=== PATIENT | male | born 1950 | race Caucasian/White ===

== ENCOUNTER → 2017-10-25 09:03 | Outpatient (CLI) | payer MEDICARE, OTHER, SELFPAY ==
[2017-10-25 10:31] LABS: AST(SGOT) 15 U/L (15-37); Alanine Aminotransfer ALT/SGPT 17 U/L (16-61); Albumin, Serum 4.2 g/dL (3.2-5.0); Alkaline Phosphatase 43 U/L (45-117); Cholesterol 212 mg/dL (200); Globulin 3.5 g/dL (2.2-4.2); High Density Lipoprotein 48 mg/dL; Protein, Total 7.7 g/dL (6.4-8.2); Triglycerides 119 mg/dL; Very Low Density Lipoprotein 24 mg/dL (5-40)
== END ==
PROVIDERS: Family Provider Family Medicine; PCP Family Medicine; Visit Provider Internal Medicine Cardiovascular Disease
DX: E78.5 Hyperlipidemia, unspecified (principal); Z79.899 Other long term (current) drug therapy
CPT/HCPCS: 36415; 80061; 80076

== ENCOUNTER → 2017-12-05 13:24 | Outpatient (CLI) | payer MEDICARE, OTHER, SELFPAY ==
[2017-12-05 15:37] LABS: Absolute Lymphocyte Count 1.38 X10^3/ul (0.83-4.51); Absolute Neutrophil Count 2.9 X10^3/uL (2.0-7.7); Basophil# 0.01 X10^3/uL; Basophil% 0.2 % (0-1); Eosinophil# 0.11 X10^3/uL; Eosinophils% 2.1 % (0-5); Hematocrit 41.4 % (40-54); Lymphocyte # 1.38 X10^3/ul (4.0); Lymphocyte % 26.9 % (19-41); Mean Corp Hgb Conc 33.8 g/gl (32-36); Mean Corpuscular Hgb 31.5 pg (27.0-32.0); Mean Platelet Vol. 10.4 fl (6.2-12.0); Monocyte# 0.69 X10^3/uL; Monocyte% 13.5 % (0-10); Neutrophil # 2.93 X10^3/uL (2.7-7.7); Neutrophil % 57.1 % (47-70); Platelet Count 166 K/mm3 (150-450); RBC Distribution Width SD 47.5 fl (35.1-43.9); Red Blood Count 4.45 M/mm3 (4.6-6.2); White Blood Count 5.1 K/mm3 (4.4-11.0)
[2017-12-05 15:48] LABS: Anion Gap 6 (5-15); BUN 12 mg/dL (7-18); BUN/Creat Ratio 12.8 RATIO (10-20); Calcium,Total 9.3 mg/dL (8.5-10.1); Chloride 105 mmol/L (98-107); Creatinine, Serum 0.94 mg/dL (0.70-1.30); EST Glomerular Filtration Rate 85 mL/min (>60); Est Glom Filt Rate - Afr Amer 103 mL/min (>60); Glucose 162 mg/dL (74-106); Potassium 4.2 mmol/L (3.5-5.1); Sodium Level 134 mmol/L (136-145); T4 Free Direct 1.36 ng/dL (0.76-1.46); Thyroid Stim Hormone (TSH) 1.09 uIU/mL (0.358-3.74)
[2017-12-05 15:52] LABS: POSITIVE COUNT NO; POSITIVE DIFFERENTIAL NO; POSITIVE MORPHOLOGY NO
== END ==
PROVIDERS: Family Provider Family Medicine; PCP Family Medicine; Visit Provider Family Medicine
DX: I10 Essential (primary) hypertension (principal); E78.2 Mixed hyperlipidemia; E11.9 Type 2 diabetes mellitus without complications
CPT/HCPCS: 36415; 80048; 84439; 84443; 85025

== ENCOUNTER → 2018-04-27 06:06 | Outpatient (CLI) | payer MEDICARE, OTHER, SELFPAY ==
[2018-04-27 08:00] LABS: AST(SGOT) 15 U/L (15-37); Alanine Aminotransfer ALT/SGPT 21 U/L (16-61); Albumin, Serum 3.9 g/dL (3.2-5.0); Alkaline Phosphatase 53 U/L (45-117); Bilirubin, Direct 0.27 mg/dL (0.00-0.30); Cholesterol 200 mg/dL (200); Globulin 3.3 g/dL (2.2-4.2); High Density Lipoprotein 49 mg/dL; Protein, Total 7.2 g/dL (6.4-8.2); Triglycerides 98 mg/dL; Very Low Density Lipoprotein 20 mg/dL (5-40)
== END ==
PROVIDERS: Family Provider Family Medicine; PCP Family Medicine; Referring Provider Internal Medicine Cardiovascular Disease; Visit Provider Internal Medicine Cardiovascular Disease
DX: E78.5 Hyperlipidemia, unspecified (principal); Z79.899 Other long term (current) drug therapy
CPT/HCPCS: 36415; 80061; 80076

== ENCOUNTER → 2018-11-15 13:59 | Outpatient (CLI) | payer MEDICARE, OTHER, SELFPAY ==
[2018-11-15 16:50] LABS: AST(SGOT) 14 U/L (15-37); Alanine Aminotransfer ALT/SGPT 19 U/L (16-61); Albumin, Serum 3.9 g/dL (3.2-5.0); Alkaline Phosphatase 72 U/L (45-117); Bilirubin, Direct 0.13 mg/dL (0.00-0.30); Cholesterol 240 mg/dL (200); Globulin 3.3 g/dL (2.2-4.2); High Density Lipoprotein 45 mg/dL; Protein, Total 7.2 g/dL (6.4-8.2); Triglycerides 187 mg/dL; Very Low Density Lipoprotein 37 mg/dL (5-40)
== END ==
PROVIDERS: Family Provider Family Medicine; PCP Family Medicine; Referring Provider Internal Medicine Cardiovascular Disease; Visit Provider Internal Medicine Cardiovascular Disease
DX: E78.5 Hyperlipidemia, unspecified (principal)
CPT/HCPCS: 36415; 80061; 80076

== ENCOUNTER → 2019-02-13 14:57 | Outpatient (CLI) | payer MEDICARE, OTHER, SELFPAY ==
[2018-11-20 07:51] VITALS: BMI 27.8
== END ==
PROVIDERS: Family Provider Family Medicine; PCP Family Medicine; Referring Provider Physician Assistant Medical; Visit Provider Physician Assistant Medical
DX: Z00.00 Encounter for general adult medical examination without abnormal findings (principal)
CPT/HCPCS: 36415; 80061; 80076

== ENCOUNTER → 2019-03-11 13:31 | Outpatient (CLI) | payer MEDICARE, OTHER, SELFPAY ==
[2018-11-20 07:51] VITALS: BMI 27.8
[2019-03-11 15:41] LABS: Absolute Lymphocyte Count 1.85 X10^3/uL (0.83-4.51); Absolute Neutrophil Count 4.7 X10^3/uL (2.0-7.7); Basophil# 0.05 X10^3/uL; Basophil% 0.6 % (0-1); Eosinophil# 0.42 X10^3/uL; Eosinophils% 5.4 % (0-5); Hematocrit 45.6 % (40-54); Hemoglobin 15.4 g/dL (13.0-16.5); Lymphocyte # 1.85 X10^3/ul (4.0); Lymphocyte % 23.8 % (19-41); Mean Corp Hgb Conc 33.8 g/dL (32-36); Mean Corpuscular Hgb 31.7 pg (27.0-32.0); Mean Corpuscular Volume 93.8 fL (80-94); Mean Platelet Vol. 10.7 fl (6.2-12.0); Monocyte# 0.73 X10^3/uL; Monocyte% 9.4 % (0-10); NRBC Flagged by Analyzer 0 % (0-5); Neutrophil # 4.68 X10^3/uL (2.7-7.7); Neutrophil % 60.2 % (47-70); Platelet Count 203 K/mm3 (150-450); RBC Distribution Width SD 44.8 fl (35.1-43.9); Red Blood Count 4.86 M/mm3 (4.6-6.2); White Blood Count 7.8 K/mm3 (4.4-11.0)
[2019-03-11 16:00] LABS: Anion Gap 8 (5-15); BUN 12 mg/dL (7-18); BUN/Creat Ratio 14.4 RATIO (10-20); Calcium,Total 9.3 mg/dL (8.5-10.1); Chloride 104 mmol/L (98-107); Creatinine, Serum 0.84 mg/dL (0.70-1.30); EST Glomerular Filtration Rate 97 mL/min (>60); Est Glom Filt Rate - Afr Amer 117 mL/min (>60); Glucose 262 mg/dL (74-106); Potassium 4.3 mmol/L (3.5-5.1); Sodium Level 138 mmol/L (136-145); Thyroid Stim Hormone (TSH) 0.79 uIU/mL (0.358-3.74)
== END ==
PROVIDERS: Family Provider Family Medicine; PCP Family Medicine; Visit Provider Family Medicine
DX: E11.65 Type 2 diabetes mellitus with hyperglycemia (principal); I10 Essential (primary) hypertension; E78.2 Mixed hyperlipidemia
CPT/HCPCS: 36415; 80048; 84443; 85025

== ENCOUNTER → 2019-12-11 06:31 | Outpatient (CLI) | payer MEDICARE, OTHER, SELFPAY ==
[2019-11-19 11:35] VITALS: BMI 25.5
--- NOTE | 2019-12-11 14:00 | STRESSREP ---
Stress Test Report Pharmacologic myocardial perfusion stress test. 69-year-old man with a history of coronary artery bypass surgery status post ICD implantation. Stress protocol: Resting EKG demonstrates atrial fibrillation with a rate of 61 bpm no intervals are noted resting blood pressure is 132/72 mmHg. Previous inferior wall myocardial infarction is noted. 0.4 mg of regadenoson was infused per usual protocol followed by rapid intravenous saline flush injection continuous EKG monitoring was performed. Patient maintained atrial fibrillation throughout the recording. The maximum heart rate attained was 83 bpm which was 54% of maximum predicted heart rate the maximum workload was 1 metabolic equivalent. At rest there were no ST or T wave changes noted to suggest abnormal flow reserve at peak infusion nonspecific ST-T wave changes were noted. No clinical angina was noted. Myocardial perfusion protocol. 11.0 mCi of technetium 99m sestamibi was injected at rest. 0.4 mg of regadenoson was infused per usual protocol peak infusion 33.0 mCi of technetium 99m sestamibi was injected stress images were obtained stress and rest images were reconstructed in comparing the short axis vertical long horizontal long axis. Gated images were also obtained per Perfusion SPECT analysis: Review of the images demonstrate evidence of a medium-sized defect involving the anterior septal wall as well as the mid inferior septal wall. Defect is also noted in the basal inferior wall. The resting images demonstrate improvement in this area suggesting anterior septal ischemia and inferoseptal ischemia. A previous basal inferior infarct is noted. Gated SPECT analysis: The gated ejection fraction is noted to be 42%. Conclusion: Abnormal pharmacologic myocardial perfusion stress test with evidence of anterior septal and inferoseptal ischemia. Reduced ejection fraction.
== END ==
PROVIDERS: PCP Family Medicine; Referring Provider Internal Medicine Cardiovascular Disease; Visit Provider Internal Medicine Cardiovascular Disease
DX: I25.10 Atherosclerotic heart disease of native coronary artery without angina pectoris (principal); Z95.1 Presence of aortocoronary bypass graft
CPT/HCPCS: 78452; 93017; A9500; A4216; J2785

== ENCOUNTER → 2020-03-19 14:03 | Outpatient (CLI) | payer MEDICARE, OTHER, SELFPAY ==
[2019-11-19 11:35] VITALS: BMI 25.5
[2020-03-19 14:40] LABS: Absolute Lymphocyte Count 1.69 X10^3/uL (0.83-4.51); Absolute Neutrophil Count 4.4 X10^3/uL (2.0-7.7); Basophil# 0.02 X10^3/uL; Basophil% 0.3 % (0-1); Eosinophils% 4.3 % (0-5); Hematocrit 41.6 % (40-54); Hemoglobin 13.9 g/dL (13.0-16.5); Lymphocyte # 1.69 X10^3/ul (4.0); Mean Corp Hgb Conc 33.4 g/dL (32-36); Mean Corpuscular Hgb 30.2 pg (27.0-32.0); Mean Corpuscular Volume 90.4 fL (80-94); Monocyte% 8.5 % (0-10); NRBC Flagged by Analyzer 0 % (0-5); Neutrophil # 4.38 X10^3/uL (2.7-7.7); Neutrophil % 62.3 % (47-70); Platelet Count 206 K/mm3 (150-450); RBC Distribution Width CV 13.5 % (11.6-14.6)
[2020-03-19 14:52] LABS: Hemoglobin A1c 12.3 % (3.8-5.6)
[2020-03-19 15:13] LABS: ALB/GLOB Ratio 0.9 RATIO (0.9-2.4); AST(SGOT) 12 U/L (15-37); Alanine Aminotransfer ALT/SGPT 15 U/L (16-61); Albumin, Serum 3.3 g/dL (3.2-5.0); Alkaline Phosphatase 85 U/L (45-117); Anion Gap 5 (5-15); BUN 23 mg/dL (7-18); BUN/Creat Ratio 27.4 RATIO (10-20); Calcium,Total 8.9 mg/dL (8.5-10.1); Chloride 101 mmol/L (98-107); Cholesterol 253 mg/dL (200); Creatinine, Serum 0.84 mg/dL (0.70-1.30); EST Glomerular Filtration Rate 96 mL/min (>60); Est Glom Filt Rate - Afr Amer 117 mL/min (>60); Globulin 3.5 g/dL (2.2-4.2); Glucose 352 mg/dL (74-106); High Density Lipoprotein 45 mg/dL; Protein, Total 6.8 g/dL (6.4-8.2); Sodium Level 133 mmol/L (136-145); T4 Free Direct 1.33 ng/dL (0.76-1.46); Thyroid Stim Hormone (TSH) 0.77 uIU/mL (0.358-3.74); Triglycerides 161 mg/dL; Very Low Density Lipoprotein 32 mg/dL (5-40)
== END ==
PROVIDERS: Internal Medicine Cardiovascular Disease; PCP Family Medicine; Referring Provider Family Medicine; Visit Provider Family Medicine
DX: E11.65 Type 2 diabetes mellitus with hyperglycemia (principal); I10 Essential (primary) hypertension; E78.2 Mixed hyperlipidemia
CPT/HCPCS: 80053; 80061; 82248; 83036; 84439; 84443; 85025

== ENCOUNTER 2020-09-29 01:11 | Emergency (ER) | payer MEDICARE, OTHER, SELFPAY ==
[2019-11-19 11:35] VITALS: BMI 25.5
[2020-09-29] VITALS (7 sets, daily range): BP systolic 155–200; BP diastolic 102–111; PULSE 109–137; RESP 16–26; TEMP 36.4–36.8; O2SAT 95–100; BMI 23.0
--- NOTE | 2020-09-29 01:12 | RAD_ITS ---
STUDY: X-RAY CHEST REASON FOR EXAM: Male, 70 years old. Neuro deficit, acute, stroke suspected TECHNIQUE: Single AP portable view of the chest. COMPARISON: 07/20/2012 FINDINGS: Stable median sternotomy wires and left chest wall pacing device The lungs are clear and expanded. There is no demonstrated pleural abnormality. Normal size heart. Normal mediastinum and raciel. Normal visualized pulmonary arteries. Normal visualized aortic arch and descending thoracic aorta. Normal visualized thoracic spine. Normal visualized ribs, clavicles, and shoulders. There is no demonstrated abnormality of the visualized soft tissue structures of the upper abdomen. RAD/Chest 1 View IMPRESSION: No acute findings Electronically Signed: Kade Jurado DO at 2:38 EDT Tel , Service support ,
--- NOTE | 2020-09-29 01:12 | CT_ITS ---
STUDY: CT HEAD STROKE PROTOCOL W/O CONTRAST INJECTION REASON FOR EXAM: Male, 70 years old. Neuro deficit, acute, stroke suspected RADIATION DOSAGE (If Supplied By Facility): CTDIvol = ( ) mGy, DLP = ( ) mGycm TECHNIQUE: Transaxial CT imaging of the brain was performed without administration of intravenous contrast material. Moderately limited by motion artifact Individualized dose optimization techniques were used for this CT. COMPARISON: No relevant priors. FINDINGS: Normal soft tissue structures. Normal calvarium. There is mild cerebral atrophy with widening of the extra-axial spaces and ventricular dilatation. There are areas of decreased attenuation within the white matter tracts of the supratentorial brain, consistent with microvascular disease changes. Normal basal ganglia and thalami. Normal brainstem. There is mild cerebellar atrophy. There is no intracranial hemorrhage. There are no findings of an acute ischemic infarction. Normal visualized paranasal sinuses. ASPECT score: CT/STROKE Brain/Head without Cont IMPRESSION: Limited by motion artifact however, no evidence of acute intracranial pathology. Consider MRI brain if clinically indicated N.B. : The above information has been verbally conveyed by Kade Jurado DO to Saqib Walker MD, on 09/29/2020 01:28:46 (ET). Electronically Signed: Kade Jurado DO at 1:29 EDT Tel , Service support ,
--- NOTE | 2020-09-29 01:12 | EKG12_ITS ---
Test Reason : NEURO Blood Pressure : / mmHG Vent. Rate : 103 BPM Atrial Rate : 105 BPM P-R Int : 000 ms QRS Dur : 120 ms QT Int : 374 ms P-R-T Axes : 000 090 041 degrees QTc Int : 489 ms Atrial fibrillation with rapid ventricular response Rightward axis Possible Inferior infarct , age undetermined Abnormal ECG Confirmed by LOREN VARGAS, KAMRYN ([id number]), material expeditor COLLEEN SHEIKH ([id number]) on 09/30/2020 10:16:24 AM Referred By: Confirmed By:KAMRYN PIMENTEL MD
--- NOTE | 2020-09-29 01:12 | CT_ITS ---
STUDY: CTA HEAD AND NECK WITH CONTRAST REASON FOR EXAM: Male, 70 years old. Neuro deficit, acute, stroke suspected RADIATION DOSAGE (If Supplied By Facility): CTDIvol = ( 25.93 ) mGy, DLP = ( 801.65 ) mGycm TECHNIQUE: CT angiography was performed with a multi-detector CT scanner. Data acquisition was obtained from the skull base through the vertex following intravenous administration of IV 100mL Isovue-370. MIP images were reconstructed from the axial data set. Post-processing of the angiographic images was performed, with multiplanar reformation and 3D reconstruction. Individualized dose optimization techniques were used for this CT. COMPARISON: No relevant priors. FINDINGS: There is extremely low blood flow within the right MCA as well as very little identifiable blood flow within the right cerebral hemisphere. There is complete occlusion of the right internal carotid artery within the carotid siphon however, there appears to be some contralateral flow within the right MCA from the left side. Normal appearance of the left MCA and posterior circulation. Right ARGELIA demonstrates very little blood flow. Also, very little blood flow within the right MEASUREMENT PSYCHOLOGIST. AORTIC ARCH: Normal three-vessel takeoff from the aortic arch. Normal appearance of the bilateral common carotid arteries with moderate atherosclerotic disease of both carotid bulbs however, no significant stenosis. There is complete occlusion of the right internal carotid artery within the carotid siphon. Of unknown chronicity. Normal left ICA. Normal appearance of the external carotid arteries. Normal appearance of the vertebral arteries and basilar artery as well as the superior cerebellar arteries. CT/STROKE CTA Head AND Neck W/Con IMPRESSION: 1. Complete occlusion of the right ICA within the right carotid siphon. There is very little demonstrated blood flow within the right cerebral hemisphere. Very reduced blood flow within the right MCA however, not totally occluded. Findings are highly concerning for right MCA territory infarct. Very little blood flow within the right ARGELIA as well as the right posterior circulation. With further discussion with the ordering provider, patient has extreme left-sided paralysis with very poor verbalization. Likely that these findings are acute 2. Normal appearance of the vertebral arteries and basilar artery as well as the superior cerebellar arteries MRI brain will be needed to further evaluate N.B. : The above information has been verbally conveyed by Kade Jurado DO to Saqib Walker MD, on 09/29/2020 01:43:11 (ET). Electronically Signed: Kade Jurado DO at 1:44 EDT Tel , Service support ,
[2020-09-29 01:17] LABS: Absolute Lymphocyte Count 2.63 X10^3/uL (0.83-4.51); Absolute Neutrophil Count 6.1 X10^3/uL (2.0-7.7); Basophil# 0.04 X10^3/uL; Basophil% 0.4 % (0-1); Eosinophil# 0.31 X10^3/uL; Eosinophils% 3.2 % (0-5); Hematocrit 51.7 % (40-54); Hemoglobin 17.1 g/dL (13.0-16.5); Lymphocyte # 2.63 X10^3/ul (4.0); Mean Corp Hgb Conc 33.1 g/dL (32-36); Mean Corpuscular Hgb 30.1 pg (27.0-32.0); Mean Corpuscular Volume 90.9 fL (80-94); Mean Platelet Vol. 10.8 fl (6.2-12.0); Monocyte# 0.65 X10^3/uL; Monocyte% 6.7 % (0-10); NRBC Flagged by Analyzer 0 % (0-5); Neutrophil # 6.07 X10^3/uL (2.7-7.7); Neutrophil % 62.4 % (47-70); Platelet Count 203 K/mm3 (150-450); RBC Distribution Width SD 43.9 fl (35.1-43.9); Red Blood Count 5.69 M/mm3 (4.6-6.2); White Blood Count 9.7 K/mm3 (4.4-11.0)
[2020-09-29 01:25] LABS: International Normalized Ratio 1.1; Prothrombin Time (Protime)PT. 13.3 SECONDS (11.7-14.9)
[2020-09-29 01:26] LABS: Partial Thromboplast Time 23.4 Seconds (24.1-36.2)
[2020-09-29 01:38] LABS: ALB/GLOB Ratio 1.1 RATIO (0.9-2.4); AST(SGOT) 20 U/L (15-37); Alanine Aminotransfer ALT/SGPT 49 U/L (16-61); Albumin, Serum 4.1 g/dL (3.2-5.0); Alkaline Phosphatase 110 U/L (45-117); Anion Gap 7 (5-15); BUN 24 mg/dL (7-18); BUN/Creat Ratio 26.6 RATIO (10-20); Calcium,Total 9.8 mg/dL (8.5-10.1); Chloride 100 mmol/L (98-107); EST Glomerular Filtration Rate 88 mL/min (>60); Est Glom Filt Rate - Afr Amer 107 mL/min (>60); Globulin 3.7 g/dL (2.2-4.2); Glucose 240 mg/dL (74-106); Potassium 3.8 mmol/L (3.5-5.1); Protein, Total 7.8 g/dL (6.4-8.2); Sodium Level 138 mmol/L (136-145)
--- NOTE | 2020-09-29 01:46 | ED.VIS.STROK ---
History of Present Illness Chief Complaint: Neuro S/Sx Informant: Significant Other, Car Lubricator Narrative: 70-year-old male presenting with left sided weakness and extinction. Patient himself cannot provide any information. EMS reports that the patient's significant other found him on the floor in the bathroom and noticed the deficits and called the ambulance. EMS brought medications with him there is an empty bottle of Pradaxa which was filled sometime last year. Review of the chart shows he has history of atrial fibrillation and sees cardiology locally. The last cardiology note that discusses his meds was from November of last year and he should be taking his Pradaxa. His fianc?e arrives and tells me that she has not seen him normal for months. When I asked specifically when was the last time she saw him using the left side of his body she tells me it was this afternoon. She tells me that he often sleeps all day and all night and does not like to be disturbed when he is in his room. She heard a noise and noticed the lights were on in the bathroom in his room around midnight and that is when she found him. Later in the ED course after she had been in the room during neurology exam she states that she saw him walk to the bathroom at 2330 hrs. She does not know for sure about the medications. - Past Medical History (1) Atherosclerosis of coronary artery bypass graft without angina pectoris Status: Chronic (2) Essential (primary) hypertension Status: Chronic (3) History of implantable cardiac defibrillator (ICD) Status: Chronic Comment: ICD Implant ; Generator change 11/17; 07/2012 (4) Hyperlipidemia Status: Chronic (5) Ischemic cardiomyopathy Status: Chronic (6) Longstanding persistent atrial fibrillation Status: Chronic (7) Secondary pulmonary arterial hypertension Status: Chronic (8) H/O coronary artery bypass surgery Status: Resolved Comment: CABG x 3 OLIVA-LCx, SVG-Ramus, SVG-LAD 08/22/96 Past Medical History - Allergies and Home Meds Allergies/Adverse Reactions: Allergies No Known Allergies Allergy (Verified 11/19/19 11:36) Primary Care Physician: Scot Garcia MD [Primary Care Provider] - Surgical History: coronary bypass surgery Lives: Spouse/ Significant Other Drugs: None Review of Systems ROS: Unable to Obtain STROKE Inital Vital Signs reviewed: Yes - NIHSS Initial 1a Level of Consciousness: 1 1b LOC Questions (Score 2 if aphasic/stupor): 1 1c LOC Commands (Only score 1st attempt): 0 2 Best Gaze (If aphasic, use reflexive mvmts.): 1 3 Visual: 2 4 Facial Palsy: 2 5 Motor Arm Right (UN = amputation/fusion): 0 5 Motor Arm Left: 4 6 Motor Leg Right: 0 6 Motor Leg Left: 4 7 Limb ataxia (Only + if out of proportion): 0 8 Sensory (Aphasia/stupor=0 or 1, coma=2): 2 9 Best Language: 2 10 Dysarthria (mute, coma=2, intubated=UN): 2 11 Extinction and Inattention (only scored if +): 2 Total Score: 23 General: Well nourished, Well developed Head: Normocephalic, Atraumatic Eyes: Perrl, EOMI ENT: Moist mucous membranes, No rhinorrhea Neck: Supple, Nontender Cardiovascular: Regular rate, Regular rhythm, No murmurs Respiratory: No distress, CTA bilaterally, Chest nontender Abdomen: Soft, Nontender, Nondistended, Normal bowel sounds Back: Nontender, Normal Inspection Extremities: Nontender, No edema Skin: Normal color, No rash Neurological: Alert Diagnostic/Tx/Re-eval Clinical Impression(s) from Imaging Studies Brain CT 09/29/20 01:12 IMPRESSION: Limited by motion artifact however, no evidence of acute intracranial pathology. Consider MRI brain if clinically indicated N.B. : The above information has been verbally conveyed by Kade Jurado DO to Saqib Walker MD, on 09/29/2020 01:28:46 (ET). Electronically Signed: Kade Jurado DO at 1:29 EDT Tel , Service support , Chest X-Ray 09/29/20 01:12 IMPRESSION: No acute findings Electronically Signed: Kade Jurado DO at 2:38 EDT Tel , Service support , Head/Neck CTA 09/29/20 01:12 IMPRESSION: 1. Complete occlusion of the right ICA within the right carotid siphon. There is very little demonstrated blood flow within the right cerebral hemisphere. Very reduced blood flow within the right MCA however, not totally occluded. Findings are highly concerning for right MCA territory infarct. Very little blood flow within the right ARGELIA as well as the right posterior circulation. With further discussion with the ordering provider, patient has extreme left-sided paralysis with very poor verbalization. Likely that these findings are acute 2. Normal appearance of the vertebral arteries and basilar artery as well as the superior cerebellar arteries MRI brain will be needed to further evaluate N.B. : The above information has been verbally conveyed by Kade Jurado DO to Saqib Walker MD, on 09/29/2020 01:43:11 (ET). Electronically Signed: Kade Jurado DO at 1:44 EDT Tel , Service support , Laboratory Last Values WBC 9.7 K/mm3 (4.4-11.0) 09/29/20 01:03 RBC 5.69 M/mm3 (4.6-6.2) 09/29/20 01:03 Hgb 17.1 g/dL (13.0-16.5) H 09/29/20 01:03 Hct 51.7 % (40-54) 09/29/20 01:03 MCV 90.9 fL (80-94) 09/29/20 01:03 MCH 30.1 pg (27.0-32.0) 09/29/20 01:03 MCHC 33.1 g/dL (32-36) 09/29/20 01:03 RDW Std Deviation 43.9 fl (35.1-43.9) 09/29/20 01:03 RDW Coeff of Jonathon 13.0 % (11.6-14.6) 09/29/20 01:03 Plt Count 203 K/mm3 (150-450) 09/29/20 01:03 MPV 10.8 fl (6.2-12.0) 09/29/20 01:03 Immature Gran % (Auto) 0.300 % (0.0-0.9) 09/29/20 01:03 Neut % (Auto) 62.4 % (47-70) 09/29/20 01:03 Lymph % (Auto) 27.0 % (19-41) 09/29/20 01:03 [place] % (Auto) 6.7 % (0-10) 09/29/20 01:03 Eos % (Auto) 3.2 % (0-5) 09/29/20 01:03 Baso % (Auto) 0.4 % (0-1) 09/29/20 01:03 Absolute Neuts (auto) 6.1 X10^3/uL (2.0-7.7) 09/29/20 01:03 Absolute Lymphs (auto) 2.63 X10^3/uL (0.83-4.51) 09/29/20 01:03 Nucleated RBC % 0 % (0-5) 09/29/20 01:03 PT 13.3 SECONDS (11.7-14.9) 09/29/20 01:03 INR 1.1 09/29/20 01:03 APTT 23.4 Seconds (24.1-36.2) L 09/29/20 01:03 Sodium 138 mmol/L (136-145) 09/29/20 01:03 Potassium 3.8 mmol/L (3.5-5.1) 09/29/20 01:03 Chloride 100 mmol/L (98-107) 09/29/20 01:03 Carbon Dioxide 31.0 mmol/L (21.0-32.0) 09/29/20 01:03 Anion Gap 7 (5-15) 09/29/20 01:03 BUN 24 mg/dL (7-18) H 09/29/20 01:03 Creatinine 0.90 mg/dL (0.70-1.30) 09/29/20 01:03 Est GFR (MDRD) Af Amer 107 mL/min (>60) 09/29/20 01:03 Est GFR (MDRD) Non-Af 88 mL/min (>60) 09/29/20 01:03 BUN/Creatinine Ratio 26.6 RATIO (10-20) H 09/29/20 01:03 Glucose 240 mg/dL (74-106) H 09/29/20 01:03 Calcium 9.8 mg/dL (8.5-10.1) 09/29/20 01:03 Total Bilirubin 1.00 mg/dL (0.20-1.00) 09/29/20 01:03 AST 20 U/L (15-37) 09/29/20 01:03 ALT 49 U/L (16-61) 09/29/20 01:03 Alkaline Phosphatase 110 U/L (45-117) 09/29/20 01:03 Troponin I 0.191 ng/mL (<0.045) H 09/29/20 01:03 Total Protein 7.8 g/dL (6.4-8.2) 09/29/20 01:03 Albumin 4.1 g/dL (3.2-5.0) 09/29/20 01:03 Globulin 3.7 g/dL (2.2-4.2) 09/29/20 01:03 Albumin/Globulin Ratio 1.1 RATIO (0.9-2.4) 09/29/20 01:03 - EKG Initial EKG Interpretation: Atrial Fibrillation - EKG demonstrates atrial fibrillation at a rate of 103. No features of ACS. - Medical Decision Making Stroke Team Activated: Yes Reviewed Inclusion/Exclusion criteria: Yes Was Patient considered for Endovascular Intervention?: Yes IV Alteplase (t-PA) Administered: No No contraindications for IV Alteplase (t-PA) administration.: No Alteplase (t-PA) risks, benefits, alternative discussed: No Not given: Patient refusal: No My interpretation of the portable chest x-ray is no acute process. Prehospital stroke team was called. He was taken from EMS cot directly to CT scanner. Initial head CT does not show any bleed. CTA shows a acute internal carotid occlusion. Case was discussed with [facility] helicopter has arrived to take the patient to [facility] for possible thrombectomy. Remains unclear whether or not the patient is on Pradaxa. Critical care time (excluding procedures): 30-74 minutes - 35 min was spent discussing with patient and significant other, discussions with neurology and radiology consultants providing direct patient care at the bedside and arranging transfer to [facility]. ED Disposition - Plan for ED Patient: Disposition: [facility] Diagnosis: Acute embolic stroke, Occlusion of right internal carotid artery Referrals: Scot Garcia MD [Primary Care Provider] -
== END 2020-09-29 02:44 | disposition short-term general hospital (02) ==
PROVIDERS: Emergency Provider Emergency Medicine; PCP Family Medicine
DX: I63.131 Cerebral infarction due to embolism of right carotid artery (principal); G81.94 Hemiplegia, unspecified affecting left nondominant side; R29.723 NIHSS score 23; I48.11 Longstanding persistent atrial fibrillation; I25.10 Atherosclerotic heart disease of native coronary artery without angina pectoris; I25.5 Ischemic cardiomyopathy; I27.21 Secondary pulmonary arterial hypertension; I10 Essential (primary) hypertension; E78.5 Hyperlipidemia, unspecified; Z79.82 Long term (current) use of aspirin; Z79.4 Long term (current) use of insulin; Z79.899 Other long term (current) drug therapy; Z95.810 Presence of automatic (implantable) cardiac defibrillator; Z95.1 Presence of aortocoronary bypass graft
CPT/HCPCS: 70450; 70496; 70498; 71045; 80053; 84484; 85025; 85610; 85730; 93005; 99285; Q9967